=== PATIENT | female | born 1990 | race Caucasian/White ===

== ENCOUNTER 2017-02-16 06:49 | Inpatient (IN) | payer OTHER ==
[~2017-02-16] VITALS: Ht 160 cm; Wt 135.8 kg
[2017-02-16 07:25] VITALS: Ht 160 cm; Wt 135.8 kg
[2017-02-16 07:26] VITALS: BP 123/74; PULSE 96
[2017-02-16] MEDS ORDERED: PRENAT PO (07:27)
[2017-02-16] MEDS ORDERED: LACTATED RINGER'S 1,000 ML IV SCH ×3 (07:56→08:53)
[2017-02-16] MEDS ORDERED: OXYTOCIN 30 UNITS/LR 500 ML IV PRN ×4 (08:00→09:00)
[2017-02-16] MEDS ORDERED: METHYLERGONOVINE 0.2 MG INJ IM PRN ×3 (08:00→09:00)
[2017-02-16] MEDS ORDERED: BUTORPHANOL 2 MG INJ IV PRN ×2 (08:00)
[2017-02-16] MEDS ORDERED: LIDOCAINE 1% (MPF) 30 ML INJ INJ PRN ×3 (08:00→09:00)
[2017-02-16] MEDS ORDERED: LACTATED RINGER'S 1,000 ML IV PRN (08:00)
[2017-02-16] MEDS ORDERED: CARBOPROST 250 MCG INJ IM PRN ×3 (08:00→09:00)
[2017-02-16] MEDS ORDERED: MISOPROSTOL 200 MCG TAB PR PRN ×3 (08:00→09:00)
[2017-02-16] MEDS ORDERED: OXYTOCIN 30 UNITS/LR 500 ML IV SCH ×3 (09:00)
[2017-02-16] MEDS ORDERED: IBUPROFEN 600 MG TAB PO PRN (09:00)
[2017-02-16 09:20] LABS: ADD SCAN DIFF NO
[2017-02-16 09:30] LABS: BASOPHILS % 0.1 % (0.0-2.0); EOSINOPHILS # 0.1 10^3/ul (0.0-0.5); EOSINOPHILS % 0.7 % (0.0-7.0); HEMATOCRIT 33.5 % (37.0-47.0); HEMOGLOBIN 10.7 g/dl (12.0-16.0); LYMPHOCYTES % 13.4 % (15.0-51.0); MEAN CORPUSCULAR HEMOGLOBIN 24.8 pg (29.0-33.0); MEAN CORPUSCULAR HGB CONC 31.9 g/dl (32.0-37.0); MEAN CORPUSCULAR VOLUME 77.5 fl (82.0-101.0); MONOCYTE # 0.4 10^3/ul (0.3-0.9); MONOCYTES % 5.2 % (0.0-11.0); NEUTROPHIL # 5.8 10^3/ul (1.6-7.5); NEUTROPHILS % 80.3 % (39.0-77.0); PLATELET COUNT 285 10^3/UL (140-415); RED BLOOD COUNT 4.32 10^6/ul (4.20-5.40); WHITE BLOOD COUNT 7.2 10^3/ul (4.8-10.8)
[2017-02-16 09:48] LABS: INR 0.88; PROTIME 11.9 Sec (12.2-14.2); PT RATIO 0.9
[2017-02-16] MEDS ORDERED: ONDANSETRON 4 MG INJ IV PRN ×2 (10:30→20:30)
[2017-02-16] MEDS ORDERED: NALOXONE (0.4 MG/ML) INJ IV PRN (10:30)
[2017-02-16] MEDS ORDERED: EPHEDrine SULFATE 50 MG/5 ML SYG IV PRN (10:30)
[2017-02-16] MEDS ORDERED: FENTAnyl 2MCG/ML-ROPIV 0.2% 100 ML BAG EPI SCH (10:30)
[2017-02-16] MEDS ORDERED: AMPICILLIN 2 GM/NS (PMX) 100 ML ONE (11:27)
[2017-02-16] MEDS ORDERED: AMPICILLIN 2 GM/NS (PMX) 100 ML IV ONE (11:30)
--- NOTE | 2017-02-16 13:18 | HP ---
Date/Time of Note Date/Time of Note DATE: 02/16/17 TIME: 13:05 OB - History Hx of Present Free Text/Dictation 25 years old 3 para EDC February 22, 2017 admitted to [facility] labor and delivery room with contraction of every 3-5 minute, pelvic examination on admission cervix 2-3 cm dilated 80% effaced vertex at -1 -2 station patient sent to the L&D for expecting management for vaginal delivery. This patient has been under the care of the [facility] and her was not complicated with gestational diabetes - induced hypertension [employer] history [place] at age 10 regular. 28-30 days lasting for 5 days history of 2 previous pregnancies with normal spontaneous vaginal delivery Allergies denies allergy to any known medication social habit denies a smoking or drinking using illicit drugs Review of system within normal Physical examination 5 feet 3 inches 299 pounds Temperature 98 point5 pulse 92 respiration 18 blood pressure 136/76 Head ears nose and throat Neck supple no thyromegaly Lungs clear to P&A Heart normal sinus rhythm no murmur Abdomen fundal height 38 cm from symphysis pubis heart rate category 1 Admitting pelvic examination Cervix 2 cm dilated 80% effaced vertex is -2 station Membranes intact Extremities no edema no varicosities Impression intrauterine at 39 weeks and 1 day active labor Estimated Due Date: Feb 22, 2017 : 3 Para: 2 Care: Good Care Obstetrical Complications: None Medical Complications: None Past Family/Social History * Past Medical, Surgical, Family and Obstetric Histories reviewed from chart. Rubella: immune RPR/VDRL: Negative GBS Status: Negative HBsAG: Negative OB Admission Exam Vital Signs Vital Signs Vital Signs Date Time Temp Pulse Resp B/P Pulse Ox O2 Delivery O2 Flow Rate FiO2 02/16/17 07:26 98.1 96 123/74 Physical Exam HEENT: WNL Heart: Rhythm Normal Lungs: Clear, Equal Abdomen: WNL Extremities: Normal Reflexes: Normal Cervical Dilatation: 2cm Effacement: Other (80%) Station: -2 Membranes: Intact Heart Rate: 130's Accelerations: Accelerations Present Decelerations: No Decelerations Varibility: Moderate Contractions on Admission: < 5 Minutes Apart Intensity: Moderate Last 72 hours Lab Results CBC & BMP 02/16/17 08:30 ABIODUN DECKER MD Feb 16, 2017 13:15
--- NOTE | 2017-02-16 13:22 | LDN ---
Date/Time of Note Date/Time of Note DATE: 02/16/17 TIME: 13:19 Delivery Summary Normal spontaneous vaginal delivery of a baby boy from OA position shoulders delivered without any difficulties rest of the baby's body follow cord was clamped after stopped pulsation placenta spontaneous expulsion inspected complete post delivery vaginal perineal inspection no laceration estimated blood loss 250 cc Weeks of Gestation 39 weeks 1 day Placenta Delivered: Spontaneously Meconium: none Episiotomy: No Laceration repair: No laceration Anesthesia type: Epidural Sponge & Needle done & correct: Yes All needle counts correct: Yes Any foreign bodies felt in the: No Problems: Delivery Information Sex Sex: male Apgars 1 Minute: 9 5 Minute: 9 Suctioning Nose & mouth suctioned at lorin: Yes Delee suction performed: No Umbilical Cord Umbilical cord with: 3 Vessels Cord presentations: no nuchal cord Cord Blood was obtained: Yes ABIODUN DECKER MD Feb 16, 2017 13:22
[2017-02-16] MEDS ORDERED: AMPICILLIN 1 GM/NS (PMX) 50 ML IV SCH (15:30)
[2017-02-16] MEDS ORDERED: ACETAMINOPHEN/CODEINE #3 TAB PO ONE (16:45)
[2017-02-16 20:30] VITALS: BP 126/79; PULSE 91; RESP 18
[2017-02-16] MEDS ORDERED: ACETAMINOPHEN/CODEINE #3 TAB PO PRN (20:30)
[2017-02-16] MEDS ORDERED: OXYCODONE/ASPIRIN (4.88/325) TAB PO PRN ×2 (20:30)
[2017-02-16] MEDS ORDERED: DIBUCAINE 1% 30 GM OINT PR PRN (20:30)
[2017-02-16] MEDS ORDERED: BENZOCAINE 20% 56 ML SPRAY TOP PRN (20:30)
[2017-02-16] MEDS ORDERED: ACETAMINOPHEN 325 MG TAB PO PRN (20:30)
[2017-02-16] MEDS ORDERED: LANOLIN 7 GM TUBE TOP PRN (20:30)
[2017-02-16] MEDS ORDERED: WITCH HAZEL/GLYCERIN PAD PR PRN (20:30)
[2017-02-16] MEDS: SENNA/DOCUSATE NA (8.6MG/50MG) TAB PO SCH (21:14)
[2017-02-17] VITALS: BP 119/77; PULSE 94; RESP 18
[2017-02-17] MEDS: IBUPROFEN 600 MG TAB PO SCH ×5 (00:27→23:52)
[2017-02-17] MEDS: ACETAMINOPHEN/CODEINE #3 TAB PO PRN ×2 (02:03→19:43)
[2017-02-17 04:00] VITALS: BP 98/55; PULSE 83; RESP 18
[2017-02-17 07:54] LABS: ADD SCAN DIFF NO
[2017-02-17 08:23] LABS: BASOPHILS % 0.3 % (0.0-2.0); EOSINOPHILS # 0.1 10^3/ul (0.0-0.5); EOSINOPHILS % 1.1 % (0.0-7.0); HEMATOCRIT 30.8 % (37.0-47.0); HEMOGLOBIN 9.9 g/dl (12.0-16.0); LYMPHOCYTES # 1.5 10^3/ul (0.8-2.9); LYMPHOCYTES % 22.7 % (15.0-51.0); MEAN CORPUSCULAR HGB CONC 32.1 g/dl (32.0-37.0); MEAN CORPUSCULAR VOLUME 77.8 fl (82.0-101.0); MONOCYTE # 0.4 10^3/ul (0.3-0.9); MONOCYTES % 5.9 % (0.0-11.0); NEUTROPHIL # 4.5 10^3/ul (1.6-7.5); NEUTROPHILS % 69.7 % (39.0-77.0); PLATELET COUNT 269 10^3/UL (140-415); RED BLOOD COUNT 3.96 10^6/ul (4.20-5.40); RED CELL DISTRIBUTION WIDTH 17.2 % (11.5-14.5); WHITE BLOOD COUNT 6.4 10^3/ul (4.8-10.8)
[2017-02-17 09:00] VITALS: BP 106/68; PULSE 84; RESP 20
[2017-02-17] MEDS: SENNA/DOCUSATE NA (8.6MG/50MG) TAB PO SCH ×2 (10:00→22:40)
[2017-02-17] MEDS: OXYTOCIN 30 UNITS/LR 500 ML IV SCH ×2 (10:03→17:55)
[2017-02-17 13:00] VITALS: BP 123/87; PULSE 98; RESP 21
--- NOTE | 2017-02-17 13:03 | PN ---
Date/Time of Note Date/Time of Note DATE: 02/17/17 TIME: 13:03 OB Subjective Subjective Subjective Post normal vaginal delivery day 1 Afebrile vital signs are listed abdomen soft uterus firm lochia moderate extremity normal Laboratory Tests Test 02/17/17 07:30 White Blood Count 6.410^3/ul Red Blood Count 3.9610^6/ul Hemoglobin 9.9g/dl Hematocrit 30.8% Mean Corpuscular Volume 77.8fl Mean Corpuscular Hemoglobin 25.0pg Mean Corpuscular Hemoglobin Concent 32.1g/dl Red Cell Distribution Width 17.2% Platelet Count 34033^3/UL Mean Platelet Volume 11.0fl Neutrophils % 69.7% Lymphocytes % 22.7% Monocytes % 5.9% Eosinophils % 1.1% Basophils % 0.3% Nucleated Red Blood Cells % 0.0/100WBC Neutrophils # 4.510^3/ul Lymphocytes # 1.510^3/ul Monocytes # 0.410^3/ul Eosinophils # 0.110^3/ul Basophils # 0.010^3/ul Nucleated Red Blood Cells # 0.010^3/ul Current Medications Medications (Trade) Dose Ordered Sig/Royce Route PRN Reason Start Time Stop Time Status Last Admin Dose Admin Lactated Ringer's (Lr) 1,000 ml @ 125 mls/hr Q8H IV 02/16/17 07:56 02/16/17 20:30 DC 02/16/17 08:38 Butorphanol Tartrate (Stadol) 1 mg Q2H PRN IV PAIN 02/16/17 08:00 02/16/17 20:30 DC Butorphanol Tartrate (Stadol) 2 mg Q2H PRN IV PAIN 02/16/17 08:00 02/16/17 20:30 DC 02/16/17 08:38 Lidocaine 30 ml 30 ml ONCE PRN INJ EPISIOTOMY/TEARING 02/16/17 08:00 02/16/17 20:30 DC Lactated Ringer's 1,000 ml @ 2,000 mls/hr Q30M PRN IV PRE-EPIDURAL BOLUS 02/16/17 08:00 02/16/17 20:30 DC 02/16/17 10:57 Oxytocin/Lactated Ringer's 500 ml @ 0 mls/hr ONCE PRN IV For Hemorrhage Management 02/16/17 08:00 02/16/17 20:30 DC Methylergonovine Maleate (Methergine) 0.2 mg ONCE PRN IM VAGINAL BLEEDING 02/16/17 08:00 02/16/17 20:30 DC Carboprost Tromethamine (Hemabate) 250 mcg ONCE PRN IM VAGINAL BLEEDING 02/16/17 08:00 02/16/17 20:30 DC Misoprostol 1000 mcg 1,000 mcg ONCE PRN CA VAGINAL BLEEDING 02/16/17 08:00 02/16/17 20:30 DC Oxytocin/Lactated Ringer's 500 ml @ 0 mls/hr TITRATE IV 02/16/17 09:00 02/16/17 20:30 DC 02/16/17 09:12 Oxytocin/Lactated Ringer's 500 ml @ 125 mls/hr ONCE -MAY REPEAT X1 IV 02/16/17 09:00 02/16/17 20:30 DC Oxytocin/Lactated Ringer's 500 ml @ 125 mls/hr ONCE IV 02/16/17 09:00 02/16/17 20:30 DC 02/16/17 13:18 Ibuprofen 600 mg 600 mg ONCE PRN PO Mild Pain (Pain Score 1-3) 02/16/17 09:00 02/16/17 20:30 DC 02/16/17 13:21 Oxytocin/Lactated Ringer's 500 ml @ 0 mls/hr ONCE PRN IV For Hemorrhage Management 02/16/17 09:00 02/16/17 20:30 DC Lactated Ringer's (Lr) 1,000 ml @ 125 mls/hr Q8H IV 02/16/17 08:53 02/16/17 20:30 DC Lidocaine 30 ml 30 ml ONCE PRN INJ EPISIOTOMY/TEARING 02/16/17 09:00 02/16/17 20:30 DC Oxytocin/Lactated Ringer's 500 ml @ 0 mls/hr ONCE PRN IV For Hemorrhage Management 02/16/17 09:00 02/16/17 20:30 DC Methylergonovine Maleate (Methergine) 0.2 mg ONCE PRN IM VAGINAL BLEEDING 02/16/17 09:00 02/16/17 20:30 DC Carboprost Tromethamine (Hemabate) 250 mcg ONCE PRN IM VAGINAL BLEEDING 02/16/17 09:00 02/16/17 20:30 DC Misoprostol 1000 mcg 1,000 mcg ONCE PRN CA VAGINAL BLEEDING 02/16/17 09:00 02/16/17 20:30 DC Lactated Ringer's (Lr) 1,000 ml @ 125 mls/hr Q8H IV 02/16/17 08:53 02/16/17 20:30 DC Lidocaine 30 ml 30 ml ONCE PRN INJ EPISIOTOMY/TEARING 02/16/17 09:00 02/16/17 20:30 DC Oxytocin/Lactated Ringer's 500 ml @ 0 mls/hr ONCE PRN IV For Hemorrhage Management 02/16/17 09:00 02/16/17 20:30 DC Methylergonovine Maleate (Methergine) 0.2 mg ONCE PRN IM VAGINAL BLEEDING 02/16/17 09:00 02/16/17 20:30 DC Carboprost Tromethamine (Hemabate) 250 mcg ONCE PRN IM VAGINAL BLEEDING 02/16/17 09:00 02/16/17 20:30 DC Misoprostol (Cytotec) 1,000 mcg ONCE PRN CA VAGINAL BLEEDING 02/16/17 09:00 02/16/17 20:30 DC Naloxone HCl (Narcan) 0.1 mg Q2M PRN IV FOR RESP RATE 8 OR LESS 02/16/17 10:30 02/16/17 20:30 DC Ondansetron HCl (Zofran Inj) 4 mg Q6H PRN IV NAUSEA AND/OR VOMITING 02/16/17 10:30 02/16/17 20:30 DC Fentanyl/ Ropivacaine 100 ml EPIDURAL INFUSION EPI 02/16/17 10:30 02/16/17 20:30 DC Ephedrine Sulfate 5 mg 5 mg PRN PRN IV BLOOD PRESSURE SUPPORT 02/16/17 10:30 02/16/17 20:30 DC Ampicillin 100 ml @ STK-MED ONCE .ROUTE 02/16/17 11:27 02/16/17 11:28 DC Ampicillin 100 ml @ 100 mls/hr ONCE ONCE IV 02/16/17 11:30 02/16/17 12:29 DC 02/16/17 11:44 Ampicillin (Ampicillin 1 Gm/ NS (Pmx)) 50 ml @ 100 mls/hr Q4H IV 02/16/17 15:30 02/16/17 20:30 DC Acetaminophen/ Codeine Phosphate 2 tab 2 tab ONCE ONCE PO 02/16/17 16:45 02/16/17 16:46 DC 02/16/17 17:01 Oxytocin/Lactated Ringer's 500 ml @ 125 mls/hr Q4H IV 02/16/17 20:26 02/17/17 04:25 DC Ibuprofen (Motrin) 600 mg Q6 PO 02/17/17 00:00 02/17/17 13:00 Acetaminophen (Tylenol Tab) 650 mg Q4H PRN PO PAIN LEVEL 1-5 02/16/17 20:30 Acetaminophen/ Codeine Phosphate (Tylenol No.3) 1 tab Q4H PRN PO PAIN LEVEL 1-5 02/16/17 20:30 Acetaminophen/ Codeine Phosphate (Tylenol No.3) 2 tab Q4H PRN PO PAIN LEVEL 6-10 02/16/17 20:30 02/17/17 02:03 Oxycodone/Aspirin (Percodan) 1 tab Q3H PRN PO PAIN LEVEL 1-5 02/16/17 20:30 Oxycodone/Aspirin (Percodan) 2 tab Q3H PRN PO PAIN LEVEL 6-10 02/16/17 20:30 Ondansetron HCl (Zofran Inj) 4 mg Q6H PRN IV NAUSEA AND/OR VOMITING 02/16/17 20:30 Senna/Docusate Sodium (Senokot-S) 1 tab BID PO 02/16/17 21:00 02/17/17 10:00 Witch Adia/ Glycerin (Tucks Pads) 1 pad BEDSIDE MEDICATION PRN CA HEMORRHOID/EPISIOTMY PAIN 02/16/17 20:30 Benzocaine (Dermoplast Breeding) 1 spray BEDSIDE MEDICATION PRN TOP HEMORRHOID/EPISIOTMY PAIN 02/16/17 20:30 02/17/17 00:27 Dibucaine (Nupercainal) 1 applic BEDSIDE MEDICATION PRN CA HEMORRHOID/EPISIOTMY PAIN 02/16/17 20:30 Lanolin (Vdg-L-Aabodt) 1 applic BEDSIDE MEDICATION PRN TOP BEDSIDE FOR EMILIANA TO NIPPLES 02/16/17 20:30 Measles/Mumps/ Rubella Vaccine Live (Mmr Ii Vaccine) 0.5 ml ONCE ONCE SC* 02/18/17 09:00 6/23/17 09:01 ABIODUN DECKER MD Feb 17, 2017 13:03
[2017-02-17 16:14] VITALS: BP 122/83; PULSE 86; RESP 20
[2017-02-17 20:00] VITALS: BP 123/78; PULSE 95; RESP 18
[2017-02-18 04:00] VITALS: BP 124/76; PULSE 89; RESP 19
[2017-02-18] MEDS: IBUPROFEN 600 MG TAB PO SCH ×3 (05:16→18:00)
[2017-02-18] MEDS: ACETAMINOPHEN/CODEINE #3 TAB PO PRN ×2 (05:29→14:33)
[2017-02-18 08:00] VITALS: BP 107/55; PULSE 82; RESP 18
[2017-02-18] MEDS: SENNA/DOCUSATE NA (8.6MG/50MG) TAB PO SCH (09:00)
[2017-02-18] MEDS ORDERED: MEASLES,MUMPS,RUBELLA VACCINE INJ SC* ONE (09:00)
--- NOTE | 2017-02-18 15:28 | PD.PPDC ---
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
--- NOTE | 2017-02-18 15:31 | DS ---
Date/Time of Note Date/Time of Note DATE: 02/18/17 TIME: 15:29 Discharge Summary Admission/Discharge Info Admit Date/Time Feb 16, 2017 at 07:57 Discharge Date/Time February 18, 2017 at 1525 Discharge Diagnosis Day 2 post normal vaginal delivery Patient Condition: Good Procedures Normal vaginal delivery Hospital Course Satisfactory uneventful Home Meds Reported Medications Multivit/Min/Fol Ac/Iron/Pren* ( S*) 1 Tab Tab, 1 TAB PO DAILY, TAB 02/16/17 Follow-up Plan Appointment clinic in 2 weeks for check Primary Care Provider Not On Staff Doctor Time spent on discharge: < 30 minutes ABIODUN DECKER MD Feb 18, 2017 15:31
[2017-02-18 16:00] VITALS: BP 135/77; PULSE 94; RESP 18
== END 2017-02-18 18:40 | disposition home or self-care (01) | DRG 775 ==
LOC: L-D 06:49 → OBT 06:49 → L-D 07:57 → PP1 20:31
PROVIDERS: ADMIT Obstetrics & Gynecology; ATTEND Obstetrics & Gynecology
PROC: 10E0XZZ Delivery of Products of Conception, External Approach (ICD-10-PCS; principal; 2017-02-16)
DX: O99.214 Obesity complicating childbirth (principal); Z68.43 Body mass index [BMI] 50.0-59.9, adult; E66.01 Morbid (severe) obesity due to excess calories; Z3A.39 39 weeks gestation of pregnancy; Z37.0 Single live birth
CPT/HCPCS: 62319; 85025; 85610; 85730; 86592; 86900; 86901; 87340; G0463; J0290; J0595; J2590; J3010; J7120